=== PATIENT | male | born 1995 | race Caucasian/White ===

== ENCOUNTER 2018-12-03 07:18 | Emergency (ER) | payer MEDICARE, OTHER ==
[2018-12-03] MEDS: LEVETIRACETAM (100 MG/ML PO SYG) PO (07:45)
[2018-12-03] MEDS: LEVETIRACETAM 1000 MG (PMX) 100 ML IVPB (08:04)
[2018-12-03] MEDS ORDERED: ONDANSETRON 4 MG INJ (08:07)
[2018-12-03] MEDS: ONDANSETRON 4 MG INJ IV (08:10)
[2018-12-03 08:34] LABS: ADD MAN DIFF? NO
[2018-12-03 08:36] LABS: WHITE BLOOD COUNT 8.7 10^3/ul (4.8-10.8)
[2018-12-03 08:36] LABS: BASOPHILS % 0.3 % (0.0-2.0); EOSINOPHILS # 0.3 10^3/ul (0.0-0.5); EOSINOPHILS % 3.9 % (0.0-7.0); HEMOGLOBIN 14.6 g/dl (14.0-18.0); LYMPHOCYTES # 2.9 10^3/ul (0.8-2.9); LYMPHOCYTES % 33.2 % (15.0-51.0); MEAN CORPUSCULAR HEMOGLOBIN 30.2 pg (29.0-33.0); MEAN CORPUSCULAR HGB CONC 33.2 g/dl (32.0-37.0); MEAN CORPUSCULAR VOLUME 90.9 fl (82.0-101.0); MEAN PLATELET VOLUME 11.8 fl (7.4-10.4); MONOCYTE # 0.7 10^3/ul (0.3-0.9); MONOCYTES % 7.6 % (0.0-11.0); NEUTROPHIL # 4.7 10^3/ul (1.6-7.5); NEUTROPHILS % 54.4 % (39.0-77.0); PLATELET COUNT 191 10^3/UL (140-415); RED BLOOD COUNT 4.84 10^6/ul (4.70-6.10); RED CELL DISTRIBUTION WIDTH 12.9 % (11.5-14.5)
[2018-12-03 08:42] LABS: ALANINE AMINOTRANSFERASE 12 IU/L (13-69); ALBUMIN 5.1 g/dl (3.3-4.9); ALBUMIN/GLOBULIN RATIO 1.45; ALKALINE PHOSPHATASE 45 IU/L (42-121); ANION GAP 15 (5-13); ASPARTATE AMINO TRANSFERASE 58 IU/L (15-46); BILIRUBIN,INDIRECT 0.1 mg/dl (0-1.1); BILIRUBIN,TOTAL 0.1 mg/dl (0.2-1.3); BLOOD UREA NITROGEN 14 mg/dl (7-20); CALCIUM 10.2 mg/dl (8.4-10.2); CARBON DIOXIDE 25 mmol/L (21-31); CHLORIDE 102 mmol/L (97-110); CREATININE 0.93 mg/dl (0.61-1.24); Estimated GFR > 60 mL/min (>60); GLUCOSE 107 mg/dl (70-220); POTASSIUM 4.5 mmol/L (3.5-5.1); SODIUM 142 mmol/L (135-144); TOTAL PROTEIN 8.6 g/dl (6.1-8.1)
== END 2018-12-03 11:07 | disposition home or self-care (01) ==
LOC: E/R 07:18
DX: G40.909 Epilepsy, unspecified, not intractable, without status epilepticus (principal); R40.2252 Coma scale, best verbal response, oriented, at arrival to emergency department; R40.2362 Coma scale, best motor response, obeys commands, at arrival to emergency department; R40.2142 Coma scale, eyes open, spontaneous, at arrival to emergency department
CPT/HCPCS: 71045; 80053; 85025; 96374; 96375; 99284-25